=== PATIENT | male | born 1945 | race Caucasian/White ===

== ENCOUNTER 2017-07-26 10:16 | Emergency (ER) | payer OTHER ==
[~2017-07-26] VITALS: Ht 175.3 cm; Wt 84.0 kg
[2017-07-26 10:18] VITALS: BP 189/105
[2017-07-26] MEDS ORDERED: DIPH,PERTUSS(ACELL),TET VAC/PF 0.5 ML IM-VACC ONE ×2 (10:29→10:30)
[2017-07-26] MEDS ORDERED: LIDOCAINE-MPF 1%, 5ML ONE (10:29)
[2017-07-26] MEDS ORDERED: LIDOCAINE-MPF 1%, 5ML INFIL ONE (10:30)
== END 2017-07-26 12:32 | disposition home or self-care (01) ==
LOC: ED 12:19
DX: S01.01XA Laceration without foreign body of scalp, initial encounter (principal); Y04.0XXA Assault by unarmed brawl or fight, initial encounter; Y93.89 Activity, other specified; Y92.89 Other specified places as the place of occurrence of the external cause; Y99.8 Other external cause status
CPT/HCPCS: 12001; 70450; 90715; 96372; 99284

== ENCOUNTER 2018-11-28 09:47 | Inpatient (IN) | payer BC, MEDICARE ==
[~2018-11-28] VITALS: Ht 175.3 cm; Wt 85.1 kg
[2018-12-01 07:30] VITALS: BP 105/67
== END 2018-12-01 11:40 | disposition home or self-care (01) | DRG 247 ==
LOC: ED 12:04 → OBSVTOIN 12:05 → INTOOBSV 12:05 → EDIP 12:05 → ED 12:15 → 5SO 15:28 → DCLOUNGE 12-01 11:26
PROVIDERS: ADMIT Internal Medicine; ATTEND Internal Medicine
PROC: 027236Z Dilation of Coronary Artery, Three Arteries with Three Drug-eluting Intraluminal Devices, Percutaneous Approach (ICD-10-PCS; principal; 2018-11-29)
PROC: 4A023N7 Measurement of Cardiac Sampling and Pressure, Left Heart, Percutaneous Approach (ICD-10-PCS; 2018-11-29)
PROC: B2151ZZ Fluoroscopy of Left Heart using Low Osmolar Contrast (ICD-10-PCS; 2018-11-29)
PROC: B2111ZZ Fluoroscopy of Multiple Coronary Arteries using Low Osmolar Contrast (ICD-10-PCS; 2018-11-29)
DX: I21.4 Non-ST elevation (NSTEMI) myocardial infarction (principal); E78.2 Mixed hyperlipidemia; F17.210 Nicotine dependence, cigarettes, uncomplicated; I10 Essential (primary) hypertension; I25.110 Atherosclerotic heart disease of native coronary artery with unstable angina pectoris; I25.82 Chronic total occlusion of coronary artery; E11.9 Type 2 diabetes mellitus without complications; M54.2 Cervicalgia; G89.29 Other chronic pain; Z71.6 Tobacco abuse counseling; Z90.89 Acquired absence of other organs
CPT/HCPCS: 36415; 93458; 96374; 96375; 99285; C9600; C9601; 71045; 80048; 80053; 80061; 83735; 83880; 84100; 84443; 84484; 85025; 85379; 85520; 93005; 93306; 99156; 99157; C1769; C1894; G0378; J0583; J1644; J2250; J2405; J3010; C1725; C1874; C1887; J2270; J7030; Q9967

== ENCOUNTER 2019-05-19 13:28 | Outpatient (CLI) | payer BC, MEDICARE ==
[~2019-05-19 13:28] MED LIST: AMLO10TA8 PO; ASPI81TA45 PO; ATOR-2 PO; CARV3.1212 PO; LISI5TAB7 PO; NICO-486 TD; ROSU10TA2 PO; STATIN; TICA90TA PO
[2019-05-19 15:51] LABS: ALANINE AMINOTRANSFERASE 38 U/L (12-78); ALBUMIN 3.8 g/dL (3.4-5.0); ANION GAP 6 mmol/L (5-15); CALCIUM 8.7 mg/dL (8.5-10.1); CHLORIDE 112 mmol/L (98-107); CHOLESTEROL, TOTAL 284 mg/dL (140-239); CREATININE 1.07 mg/dL (0.7-1.3)
[2019-05-19 15:54] LABS: ALKALINE PHOSPHATASE 97 U/L (45-117); BILIRUBIN,TOTAL 0.6 mg/dL (0.2-1.0); HDL CHOLESTEROL (DIRECT) 40 mg/dL (40-60); TOTAL PROTEIN 7.7 g/dL (6.4-8.2); TRIGLYCERIDES 134 mg/dL (50-200); VLDL CHOLESTEROL 27 mg/dL (0-25)
[2019-05-19 16:06] LABS: CHOL/HDL RATIO 7.1; HDL CHOL % 14 % (26-37); LDL CHOLESTEROL,CALCULATED 217 mg/dL (54-169); LDL/HDL RATIO 5.4 (0.5-3.0)
== END 2019-05-19 23:59 | disposition home or self-care (01) ==
LOC: CFH 13:28
PROVIDERS: ATTEND Internal Medicine Cardiovascular Disease
DX: I10 Essential (primary) hypertension (principal); I21.4 Non-ST elevation (NSTEMI) myocardial infarction; E78.2 Mixed hyperlipidemia; R74.9 Abnormal serum enzyme level, unspecified; Z72.0 Tobacco use; Z98.61 Coronary angioplasty status
CPT/HCPCS: 36415; 80053; 80061

== ENCOUNTER 2020-12-03 13:33 | Outpatient (CLI) | payer BC, MEDICARE ==
[~2020-12-03 13:33] MED LIST changes: +AMLO-211 PO; -AMLO10TA8 PO
== END 2020-12-03 23:59 | disposition home or self-care (01) ==
LOC: CFH 13:33
PROVIDERS: ATTEND Obstetrics & Gynecology
DX: Z12.2 Encounter for screening for malignant neoplasm of respiratory organs (principal); R91.1 Solitary pulmonary nodule; I25.10 Atherosclerotic heart disease of native coronary artery without angina pectoris; E04.1 Nontoxic single thyroid nodule; Z87.891 Personal history of nicotine dependence
CPT/HCPCS: 71271